=== PATIENT | female | born 1960 | race African-American/Black ===

== ENCOUNTER → 2017-01-06 | Outpatient (CLI) | payer BC ==
[~2017-01-06] MED LIST: HYDRALAZINE HCL25 MG PO; LISINOPRIL20 MG PO; LOSARTAN-HCTZ1 EAC1 PO; MATZIM LA360 MG PO; MULTIPLE VITAMI1 T11 PO; VITAMIN D50000 UNIT PO; WELCHOL625 MG PO; ZYLOPRIM100 MG PO
[2017-01-06 16:38] LABS: BASOPHIL# 0.1 X10e3 (0-0.3); BASOPHIL% 0.9 % (0-2.5); EOSINOPHIL# 0.1 X10e3 (0-0.7); EOSINOPHIL% 1.5 % (0.0-7.0); HEMATOCRIT 34.4 % (35.0-45.0); HEMOGLOBIN 11.4 gm/dL (12.0-16.0); LYMPHOCYTE% 27.1 % (17.0-45.0); MEAN CELL VOLUME 95.6 FL (83-96); MEAN CORPUSCULAR HEMOGLOBIN 31.6 PG (28-34); MEAN CORPUSCULAR HGB CONC 33.1 g/dL (30-36); MEAN PLATELET VOLUME 8.4 FL (6.5-11.5); MONOCYTE# 0.6 X10e3 (0-1.0); NEUTROPHIL# 4.5 X10e3 (1.5-7.1); NEUTROPHIL% 62.5 % (40-75); PLATELET COUNT 225 X10e3 (140-420); RED CELL DISTRIBUTION WIDTH 13.3 % (11.0-15.5); WHITE BLOOD COUNT 7.3 X10e3 (4.0-10.5)
[2017-01-06 16:56] LABS: DIFF IND NO
[2017-01-06 17:09] LABS: BUN/CREATININE RATIO 8.85; CREATININE SERUM 6.1 mg/dL (0.6-1.4); GLOM FILT RATE Estimated 9.1 mL/min (>60); PHOSPHOROUS 3.6 mg/dL (2.5-4.6); POTASSIUM 4.2 mmol/L (3.5-5.1)
[2017-01-12 00:26] LABS: CALCIUM (PTHINTACT) 9.6 mg/dL (8.6-10.4)
== END | disposition home or self-care (01) ==
LOC: CLAB 16:14
PROVIDERS: Internal Medicine Nephrology
DX: N18.5 Chronic kidney disease, stage 5 (principal); E55.9 Vitamin D deficiency, unspecified
CPT/HCPCS: 36415; 80048; 82306; 82310; 82652; 83970; 84100; 85025